=== PATIENT | male | born 1965 | race African-American/Black ===

== ENCOUNTER 2025-03-25 17:51 | Emergency (ER) | payer MEDICAID, OTHER ==
[~2025-03-25] VITALS: Ht 182.9 cm; Wt 104.0 kg
[~2025-03-25 17:51] MED LIST: ACET-2247 PO; ALBU2.5V39 NEB; BENZ0.5T52 PO; BISA10SU11 PR; DOXY25TA41 PO; GABA-583 PO; GLYC30DR3 OU; HALO.5 PO; IBUP-2340 PO; IPRA0.2S49 NEB; LEVE250T2 PO; MAG30ORA11 PO; MELA5TAB21 PO; METF-1211 PO; PANT-31 PO; TRAM50TA5 PO; TRAZ150T79 PO
[2025-03-25] MEDS: ACETAMINOPHEN/CODEINE 300-30 MG TABLET PO ONE (21:00)
[2025-03-25] MEDS: IBUPROFEN 600 MG TABLET PO ONE (21:00)
[2025-03-25] MEDS ORDERED: ACET-2080 PO (22:48)
[2025-03-26 00:06] VITALS: BP 157/92; PULSE 84; RESP 18; TEMP 97.8; O2SAT 99
== END 2025-03-26 01:23 | disposition home or self-care (01) ==
LOC: EMS 17:51
DX: S22.49XA Multiple fractures of ribs, unspecified side, initial encounter for closed fracture (principal); S62.92XA Unspecified fracture of left hand, initial encounter for closed fracture; E11.9 Type 2 diabetes mellitus without complications; J45.909 Unspecified asthma, uncomplicated; Z79.899 Other long term (current) drug therapy; Z91.018 Allergy to other foods; V49.9XXA Car occupant (driver) (passenger) injured in unspecified traffic accident, initial encounter; Y93.89 Activity, other specified; Y92.410 Unspecified street and highway as the place of occurrence of the external cause; Y99.8 Other external cause status
CPT/HCPCS: 71101; 99284; 73130-TC; Z7502; Z7610